=== PATIENT | female | born 1975 | race Caucasian/White ===

== ENCOUNTER 2017-06-15 09:37 | Emergency (ER) | payer MEDICAID, OTHER ==
--- NOTE | 2017-06-15 10:24 | UC ---
Laceration HPI - HPI Summary HPI Summary: 41 y/o female presents to the urgent care c/o right index finger laceration with a baking dish that broke while washing the dishes this morning around 0845. Pt irrigated and stopped bleeding with lavender essential oil. Pt states she knows a lot about homeopathic oils. Pt declines the Tetanus shot, and she understands the risks and still declines. Pain is 2/10, can move her finger and denies numbness or tingling over the fingers. Denies fever, SOB, chest pain, N/V /D - History Of Current Complaint Chief Complaint: UCLaceration Stated Complaint: FINGER LACERATION Time Seen by Provider: 06/15/17 10:17 Hx Obtained From: Patient Hx Last Menstrual Period: 06/11/17 Laceration Location: Finger - RT #2 finger with laceration - Allergies/Home Medications Allergies/Adverse Reactions: Allergies Allergy/AdvReac Type Severity Reaction Status Date / Time No Known Allergies Allergy Verified 06/15/17 09:45 PMH/Surg Hx/FS Hx/Imm Hx Previously Healthy: Yes Respiratory History: Asthma - controlled for many years - Surgical History Surgical History: None - Family History Known Family History: Positive: Cardiac Disease, Hypertension, Diabetes - Social History Occupation: Unemployed Lives: With Family Alcohol Use: None Substance Use Type: None Smoking Status (MU): Never Smoked Tobacco Review of Systems Constitutional: Negative Skin: Other - Laceration toRT index finger Eyes: Negative ENT: Negative Respiratory: Negative Cardiovascular: Negative Gastrointestinal: Negative Genitourinary: Negative Motor: Negative Neurovascular: Negative Musculoskeletal: Negative Neurological: Negative Psychological: Negative Is Patient Immunocompromised?: No All Other Systems Reviewed And Are Negative: Yes Physical Exam Triage Information Reviewed: Yes Appearance: Well-Appearing, No Pain Distress, Well-Nourished Vital Signs: Initial Vital Signs Temp 98.4 F 06/15/17 09:45 Pulse 81 06/15/17 09:45 Resp 18 06/15/17 09:45 BP 111/79 06/15/17 09:45 Pulse Ox 100 06/15/17 09:45 Vital Signs Reviewed: Yes Eye Exam: Normal Eyes: Positive: Conjunctiva Clear - PERRLA, EOMI ENT Exam: Normal ENT: Positive: Normal ENT inspection, Hearing grossly normal, Pharynx normal, TMs normal Dental Exam: Normal Neck exam: Normal Neck: Positive: Supple, Nontender, No Lymphadenopathy Respiratory Exam: Normal Respiratory: Positive: Chest non-tender, Lungs clear, Normal breath sounds, No respiratory distress Cardiovascular Exam: Normal Cardiovascular: Positive: RRR, No Murmur, Pulses Normal Abdominal Exam: Normal Abdomen Description: Positive: Nontender, No Organomegaly, Soft. Negative: CVA Tenderness (R), CVA Tenderness (L) Bowel Sounds: Positive: Present Musculoskeletal Exam: Normal Musculoskeletal: Positive: Strength Intact, ROM Intact Neurological Exam: Normal Psychological Exam: Normal Skin: Positive: significant lesion(s) - RT #2 phalanx superficial semilunar irregular avulsion laceration about 1.8cmx1.5cm in size. bleeding stopped, tendr to palpation. positive senstaion WNL, FROM of phalanx,, capillary refill brisk. Pulses WNL. Laceration Repair - Laceration Repair 1 Description: Irregular - superficial semilunar avulsion laceration Laceration Size After Repair: Length (cm) - 1.8cm x1.5cm Modified For Repair: No Type Injection: Local Anesthesia Used: 2.0% Lido - 4ml Cleansing Completed Via Routine Prep: Yes Irrigation With Pressure Irrigation Device: Yes Closure Material: Sutures - 11 sutures Closure Method: Single Layer Suture Of: Skin, SQ Suture Type: Nylon - 5.0 Laceration Course/Dx - Course/Dx Course Of Treatment: 41 y/o female presents to the urgent care c/o right index finger laceration with a baking dish that broke while washing the dishes this morning around 0845. Pt irrigated and stopped bleeding with lavender essential oil. Pt states she knows a lot about homeopathic oils. Pt declines the Tetanus shot, and she understands the risks and still declines. Pain is 2/10, can move her finger and denies numbness or tingling over the fingers. Denies fever, SOB, chest pain, N/V/D. HX obtained. Avulsion laceration of RT #2 phalanx. Pt refuse the Tetanus Im inj. She is against vaccination. Pt was educated and counselted on all multiple risk of Tetany. Pt understood and still refused vaccine. LACERATION PROCEDURE NOTE: . Copious irrigation was done with saline by the nurse and the wound explored. There was no FB or deep structure injury noted. FROM of RT hand and all phalanxes. procedure was explained and consent obtained, Timeout performed. The wound was anesthetized with 4 mL of 2% lido with good anesthesia. Sterile drape and prep were done. There were 11 sutures with 5.0 nylon type of suture. The length of the wound after closure was 1.8X1.5 semilunar in shape . No debridement done. Wound was covered bacitracin with sterile nonadherent dressing with splint. The Pt tolerated the procedure well without adverse effects. Neurovascular intact and FROM. Pt advised to f/u suture removal in 7-10 days and if any signs of infection develop to immediately return to the urgent care of PCP for further management and treatment. If any symptoms of Tetany to immediately go to the ER for further treatment/ Pt understood and agreed w/ D/C instructions and left the clinic ambulating A&Ox3. - Differential Dx - Laceration/Wound Differental Diagnoses: Abrasion, Avulsion, Laceration, Puncture Wound, Tendon Laceration Provider Diagnoses: 1- RT #2 phalanx laceration Discharge - Discharge Plan Condition: Stable Disposition: HOME Prescriptions: Bacitracin OINTMENT* 1 applic TOPICAL TID #1 tube Patient Education Materials: Care For Your Stitches (ED), Laceration (ED) Referrals: Binh Sánchez MD [Primary Care Provider] - 1 Week Ulises Hartman MD [Medical Doctor] - 1 Week Additional Instructions: 1-Please apply Bacitracin ointment on affected areas as directed. 2- Keep wound clean and dry and avoid excessive movement w/ your finger. 3- F/u suture removal in 10 days w/ your PCP or here at the urgent care. 4-Take Ibuprofen or Tylenol PO q6-8hrs prn for pain or swelling. 5-F/u with the Hand surgeon Dr Hartman in 1 week if you continue to feel numbness over the finger. 6- If you develop perioral numbness, paresthesias of the hands and feet, muscle cramps, muscle contraction or severe tetany since you decline tetanus Vaccine please go to the ER immediately for further treatment.
[2017-06-15] MEDS ORDERED: Lidocaine 2% 10 ML* VIAL INJ ONE (10:34)
[2017-06-15] MEDS ORDERED: Lidocaine 2% PF * 5 ML VIAL INJ ONE (10:41)
== END 2017-06-15 12:00 | disposition home or self-care (01) ==
LOC: UCEAST 09:37
DX: S61.210A Laceration without foreign body of right index finger without damage to nail, initial encounter (principal); W25.XXXA Contact with sharp glass, initial encounter; Y93.G1 Activity, food preparation and clean up; Y92.000 Kitchen of unspecified non-institutional (private) residence as the place of occurrence of the external cause; Y99.9 Unspecified external cause status
CPT/HCPCS: 12001; 99202; G0463; J2001